=== PATIENT | female | born 1955 | race Two or more races ===

== ENCOUNTER 2020-04-07 05:23 | Day surgery (SDC) | payer OTHER ==
[~2020-04-07] VITALS: Ht 162.6 cm; Wt 75.7 kg
[~2020-04-07 05:23] MED LIST: GABAPENTIN600 MG PO; METFORMIN HCL500 M3 PO; NORVASC5 MG PO; TRICOR145 MG PO; XANAX2 MG PO; ZOCOR20 MG PO
[2020-04-07] MEDS ORDERED: PERCOCET 5-3251 EACH PO (11:41)
[2020-04-07] MEDS ORDERED: PROTONIX40 MG PO (11:42)
[2020-04-07] MEDS ORDERED: ZOFRAN4 MG PO (11:42)
[2020-04-07] MEDS ORDERED: DICY20TA PO (11:47)
== END 2020-04-07 14:25 | disposition home or self-care (01) ==
LOC: CIR.AMB 05:23
PROVIDERS: ATTEND Surgery
DX: K81.1 Chronic cholecystitis (principal); Z20.828 Contact with and (suspected) exposure to other viral communicable diseases